=== PATIENT | female | born 1980 | race Asian ===

== ENCOUNTER 2019-01-08 15:07 | Emergency (ER) | payer OTHER ==
[2019-01-08] MEDS ORDERED: NS 1,000 ML IV ONE (15:22)
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
[2019-01-08 15:34] LABS: PLATELET COUNT 151 10^3/uL (150-400)
[2019-01-08] MEDS ORDERED: TDAP ADULT 0.5 ML INJ (BOOSTRIX) IM ONE (16:11)
[2019-01-08 17:56] VITALS: BP 105/64
== END 2019-01-08 17:56 | disposition home or self-care (01) ==
LOC: EDBD 15:07
DX: S06.0X9A Concussion with loss of consciousness of unspecified duration, initial encounter (principal); S00.81XA Abrasion of other part of head, initial encounter; S80.212A Abrasion, left knee, initial encounter; S40.812A Abrasion of left upper arm, initial encounter; V19.9XXA Pedal cyclist (driver) (passenger) injured in unspecified traffic accident, initial encounter; Y92.89 Other specified places as the place of occurrence of the external cause; Y99.9 Unspecified external cause status; Y93.55 Activity, bike riding
CPT/HCPCS: G0480